=== PATIENT | female | born 2000 | race Caucasian/White ===

== ENCOUNTER 2020-01-29 20:02 | Emergency (ER) | payer BC ==
[2020-01-29] MEDS ORDERED: ALBUTEROL SULFATE HFA (90 MCG/PUFF) 8 GM MDI IH ONE (20:42)
--- NOTE | 2020-01-29 21:34 | RADIOLOGY REPORT (SQ) ---
CLINICAL INDICATION: pain sp fall. TECHNIQUE: A single portable AP view was obtained of the chest at 2111 hours. COMPARISON: None. FINDINGS: The cardiomediastinal silhouette is normal. The lungs are grossly clear. No evidence of effusion or pneumothorax. The visualized bones are unremarkable. Mild hyperinflation IMPRESSION: No evidence of active intrathoracic disease.
--- NOTE | 2020-01-29 21:44 | ER Document Report ---
HPI - HPI Patient complains to provider of: Cough congestion Time Seen by Provider: 01/29/20 20:14 Onset: Yesterday Onset/Duration: Persistent Quality of pain: Achy Severity: Moderate Pain Level: Denies Associated Symptoms: Nonproductive cough, Fever, Rhinnorhea Relieved by: Denies Similar symptoms previously: No Recently seen / treated by doctor: No - CONSTITUTIONAL Constitutional: REPORTS: Fever, Chills - EENT EENT: REPORTS: Sore Throat - NEURO Neurology: REPORTS: Weakness, Dizzinesss / Vertigo - CARDIOVASCULAR Cardiovascular: REPORTS: Chest pain - RESPIRATORY Respiratory: REPORTS: Trouble Breathing, Coughing - REPRODUCTIVE LMP: 01/18/2020 Reproductive: DENIES: : Past Medical History - General Information source: Patient - Social History Smoking Status: Never Smoker Chew tobacco use (# tins/day): No Frequency of alcohol use: None Drug Abuse: None Lives with: Alone Family History: None Patient has homicidal ideation: No Vertical Provider Document - CONSTITUTIONAL Agree With Documented VS: Yes General Appearance: No Apparent Distress - HEENT HEENT: Atraumatic - NECK Neck: Normal Inspection - RESPIRATORY Respiratory: Breath Sounds Normal, No Respiratory Distress - CARDIOVASCULAR Cardiovascular: Regular Rate, Regular Rhythm - GI/ABDOMEN Gastrointestinal: Abdomen Soft, Abdomen Non-Tender - REPRODUCTIVE Female Genitalia: Normal Inspection - BACK Back: Normal Inspection - MUSCULOSKELETAL/EXTREMETIES Musculoskeletal/Extremeties: MAEW - NEURO Level of Consciousness: Awake, Alert - DERM Integumentary: Warm, Dry Course - Re-evaluation Re-evalutation: 01/29/20 21:40 Patient feels well no nausea no vomiting no emesis here in the department patient was provided with respiratory treatment. Patient will be discharged home on isolation protocol follow-up with PMD in 3 to 4 days they will advise upon her test results in 2 to 3 days. - Vital Signs Vital signs: Temp Pulse Resp BP Pulse Ox 99.5 F 87 16 117/69 100 01/29/20 20:27 01/29/20 20:09 01/29/20 20:09 01/29/20 20:09 01/29/20 20:09 Discharge - Discharge Clinical Impression: Viral illness Condition: Good Disposition: HOME, SELF-CARE Instructions: Acetaminophen, Fever ([facility]), Viral Syndrome ([facility]) Additional Instructions: To help with spread of COVID-19, everyone should: Clean your hands often, either with soap and water for 20 seconds or hand health economist that contains at least 60% alcohol. Avoid close contact with people who are sick. Put distance between yourself and other people at least 6 feet. Cover your mouth and nose with a clean base cover when around others. Cover your cough or sneeze with the tissue then through the tissue in the trash. Clean and disinfect frequently touched objects and surfaces daily. CDC recommends that people wear a clock face coverings in public settings and when around people outside of their household, especially when other social distancing measures are difficult to maintain. Clock face coverings may help prevent people who have COVID-19 from spreading the virus to others. Specifically you have been tested however your results are not back yet he should self quarantine following all the appropriate protocols remaining isolated as much as possible. Follow-up with PMD in 3 to 4 days.
[2020-01-29 21:56] VITALS: BP 107/66
== END 2020-01-29 22:01 | disposition home or self-care (01) ==
LOC: ER 20:02
DX: U07.1 COVID-19 (principal); R05 Cough; J34.89 Other specified disorders of nose and nasal sinuses; R53.1 Weakness; R42 Dizziness and giddiness; R07.9 Chest pain, unspecified; J02.9 Acute pharyngitis, unspecified; R50.9 Fever, unspecified
CPT/HCPCS: 99283; 87635; 71045; J3490; C9803